=== PATIENT | male | born 1965 | race Caucasian/White ===

== ENCOUNTER → 2018-01-27 | Outpatient (CLI) | payer BC ==
--- NOTE | 2018-01-27 08:10 | US ---
EXAMINATION TYPE: US liver DATE OF EXAM: 01/27/2018 COMPARISON: NONE CLINICAL HISTORY: R74.8 elevated liver enzymes. EXAM MEASUREMENTS: Liver Length: 19.5 cm Gallbladder Wall: 0.2 cm CBD: 0.2 cm Right Kidney: 13.9 x 6.7 x 6.5 cm Pancreas: Mostly obscured by bowel gas, portions visualized wnl Liver: Increased attenuation, decreased visualization of vessels, very difficult to penetrate, enlar ged Gallbladder: wnl Evidence for sonographic Grewal's sign: no CBD: very limited visualization Right Kidney: lobular contour, enlarged IMPRESSION: 1. Hepatomegaly with hepatic steatosis.
== END | disposition home or self-care (01) ==
LOC: RADUSWWP 07:02
PROVIDERS: ATTEND Family Medicine
DX: R16.0 Hepatomegaly, not elsewhere classified (principal); K76.0 Fatty (change of) liver, not elsewhere classified
CPT/HCPCS: 76705

== ENCOUNTER → 2019-01-06 | Outpatient (CLI) | payer BC ==
--- NOTE | 2019-01-06 11:21 | US ---
EXAMINATION TYPE: US liver DATE OF EXAM: 01/06/2019 COMPARISON: 01/27/2018 CLINICAL HISTORY: R74.8 Abnormal Serum Enzyme Levels. EXAM MEASUREMENTS: Liver Length: 14.0 cm Gallbladder Wall: 0.2 cm CBD: 0.4 cm Right Kidney: 14.0 x 6.2 x 6.0 cm Pancreas: Obscured by bowel gas Liver: Increased attenuation, decreased visualization of vessels, very difficult to penetrate, enlar ged Gallbladder: wnl Evidence for sonographic Grewal's sign: no CBD: wnl Right Kidney: Multiple small echogenic foci within the right kidney represent small 1 to 2 mm renal c alculi IMPRESSION: 1. Redemonstration of hepatic steatosis overall appearing moderate in degree. 2. Multiple punctate nonobstructing right renal calculi. No hydronephrosis. 3. Obscuration of the pancreas by overlying bowel gas.
== END | disposition home or self-care (01) ==
LOC: RADUSWWP 09:34
PROVIDERS: ATTEND Family Medicine
DX: K76.0 Fatty (change of) liver, not elsewhere classified (principal); N20.0 Calculus of kidney
CPT/HCPCS: 76705

== ENCOUNTER 2019-04-01 07:32 | Day surgery (SDC) | payer BC ==
[2019-03-30 10:21] VITALS: BMI 35.6
[~2019-04-01 07:32] MED LIST: LACTATED RINGERS 1,000 ML IV SCH; LIDOCAINE 1% 20 ML VIAL (10MG/ML) FOR IV START INTRADERMA PRN
--- NOTE | 2019-04-01 07:38 | P.GSHP ---
History of Present Illness H&P Date: 04/01/19 CHIEF COMPLAINT: Colon screen HISTORY OF PRESENT ILLNESS: The patient is a 53-year-old male who presents for colon screen. Lower endoscopy was offered for further evaluation and management. PAST MEDICAL HISTORY: Please see list. PAST SURGICAL HISTORY: Please see list. MEDICATIONS: Please see list. ALLERGIES: Please see list. SOCIAL HISTORY: No illicit drug use FAMILY HISTORY: No reports of Crohn disease or ulcerative colitis. REVIEW OF ORGAN SYSTEMS: CONSTITUTIONAL: No reports of fevers or chills. PHYSICAL EXAM: VITAL SIGNS: Stable GENERAL: Well-developed pleasant in no acute distress. HEENT: No scleral icterus. Extraocular movements grossly intact. Moist buccal mucosa. NECK: Supple without lymphadenopathy. CHEST: Unlabored respirations. Equal bilateral excursions. CARDIOVASCULAR: Regular rate and rhythm. Distal 2+ pulses. ABDOMEN: Soft, nontender, nondistended. MUSCULOSKELETAL: No clubbing, cyanosis, or edema. ASSESSMENT: 1. Colon screen. PLAN: 1. Recommend proceeding with a lower endoscopy Past Medical History Past Medical History: Diabetes Mellitus, Hypertension Additional Past Medical History / Comment(s): "FATTY LIVER" , GASTROPARESIS- PAST HISTORY History of Any Multi-Drug Resistant Organisms: None Reported Past Surgical History: No Surgical Hx Reported Additional Past Surgical History / Comment(s): COLONOSCOPY , EGD Past Anesthesia/Blood Transfusion Reactions: No Reported Reaction Smoking Status: Former smoker - Past Family History Mother Family Medical History: Diabetes Mellitus Father Family Medical History: COPD, Hypertension Additional Family Medical History / Comment(s): father Brother(s) Family Medical History: Cancer Medications and Allergies Home Medications Medication Instructions Recorded Confirmed Type Metoprolol Tartrate [Lopressor] 100 mg PO DAILY 05/06/14 03/30/19 History Hydrochlorothiazide 25 mg PO DAILY 03/30/19 03/30/19 History Losartan [Cozaar] 50 mg PO DAILY 03/30/19 03/30/19 History Sertraline [Zoloft] 100 mg PO DAILY 03/30/19 03/30/19 History sitaGLIPtin PHOS/metFORMIN HCL 1 each PO DAILY 03/30/19 03/30/19 History [Janumet 50-500 mg Tablet] Allergies Allergy/AdvReac Type Severity Reaction Status Date / Time No Known Allergies Allergy Verified 03/30/19 10:00
[2019-04-01 07:54] VITALS: TEMP 98.3
[2019-04-01 08:08] LABS: Glucose,Whole Blood 218 mg/dL (75-99)
[2019-04-01] MEDS ORDERED: PROPOFOL 10 MG/ML 20 ML VIAL IV ONE (08:34)
[2019-04-01] MEDS ORDERED: LIDOCAINE 1% INJ 10MG/ML (20 ML MDV) ONE (08:34)
--- NOTE | 2019-04-01 09:04 | P.PCN ---
Date of Procedure: 04/01/19 Description of Procedure: PREOPERATIVE DIAGNOSIS: Family history of colon cancer Colonoscopy screening, first POSTOPERATIVE DIAGNOSIS: Family history of colon cancer Colonoscopy screening, first Multiple tubular adenomas throughout the colon. Internal hemorrhoids, grade 2 OPERATION: Colonoscopy to the ileocecal valve and appendiceal orifice. Colonoscopy with multiple cold forceps biopsies. SURGEON: Mitzi Catalan MD. ANESTHESIA: MAC. INDICATIONS: The patient is a 53-year-old male who presents for his first colonoscopy screening. He has multiple family members with colon cancer. Benefits and risks were described and informed consent was obtained. DESCRIPTION OF PROCEDURE: The patient had undergone Gatorade, MiraLAX and Dulcolax prep. He had been brought into the operating room and laid in the left lateral decubitus position. After adequate intravenous sedation, the rectum was examined with 2% lidocaine jelly. No external hemorrhoids were encountered. The rectal tone was within normal limits. No lesions were palpated in the rectal vault. An Olympus colonoscope was advanced until the ileocecal valve and appendiceal orifice were clearly viewed. Abdominal wall pressure was needed to advance the colon via a tortuous sigmoid colon. The prep was poor with moderate stool prohibiting full view of the mucosa. No scattered diverticulosis was encountered. Multiple colonic polyps were found and cold forcep biopsy. No evidence of focal colitis was found. Retroflexion of the scope demonstrated grade 2 internal hemorrhoids without active bleeding or inflammation. The colon was desufflated. The patient had tolerated the procedure well. Withdrawal time was over 6 minutes. FINDINGS: Aronchick preparation quality scale 4 (1-5) Internal hemorrhoids, grade 2 No external hemorrhoids. No arteriovenous malformations. No scattered diverticulosis Poor prep with moderate semisolid stool obscuring the descending colon Removal of 8 polyps: - Cold forceps biopsy at 20 cm from the anal verge 3, 4 mm tubulovillous adenoma polyp, sigmoid colon - Cold forceps biopsy at 15 cm from the anal verge 4, 3 mm flat villous adenoma polyp, sigmoid colon - Cold forceps biopsy at mid transverse colon, 5 mm polyp. No focal colitis. RECOMMENDATIONS: Given severity of tubular adenomas, recommend repeat colonoscopy 2 years, 2020. Recommend two day liquid diet for appropriate prep Plan - Discharge Summary Discharge Rx Participant: No New Discharge Prescriptions: No Action Metoprolol Tartrate [Lopressor] 100 mg PO DAILY sitaGLIPtin PHOS/metFORMIN HCL [Janumet 50-500 mg Tablet] 1 each PO DAILY Sertraline [Zoloft] 100 mg PO DAILY Losartan [Cozaar] 50 mg PO DAILY Hydrochlorothiazide 25 mg PO DAILY Discharge Medication List Metoprolol Tartrate [Lopressor] 100 mg PO DAILY 05/06/14 [History] Hydrochlorothiazide 25 mg PO DAILY 03/30/19 [History] Losartan [Cozaar] 50 mg PO DAILY 03/30/19 [History] Sertraline [Zoloft] 100 mg PO DAILY 03/30/19 [History] sitaGLIPtin PHOS/metFORMIN HCL [Janumet 50-500 mg Tablet] 1 each PO DAILY 03/30/19 [History] Follow up Appointment(s)/Referral(s): Mitzi Catalan MD [STAFF PHYSICIAN] - 04/07/19 Patient Instructions/Handouts: Colorectal Polyps (GEN) Activity/Diet/Wound Care/Special Instructions: Repeat colonoscopy 2 years, 2020 Discharge Disposition: HOME SELF-CARE
[2019-04-01 09:24] VITALS: RESP 18
[2019-04-01 10:03] VITALS: BP 126/70; PULSE 68
== END 2019-04-01 10:00 | disposition home or self-care (01) ==
LOC: ORWHC2ENDO 07:32
PROVIDERS: ATTEND Surgery Plastic and Reconstructive Surgery
DX: Z12.11 Encounter for screening for malignant neoplasm of colon (principal); Z80.0 Family history of malignant neoplasm of digestive organs; D12.3 Benign neoplasm of transverse colon; K63.5 Polyp of colon; Q43.9 Congenital malformation of intestine, unspecified; K64.1 Second degree hemorrhoids; I10 Essential (primary) hypertension; E11.43 Type 2 diabetes mellitus with diabetic autonomic (poly)neuropathy; K31.84 Gastroparesis; K76.0 Fatty (change of) liver, not elsewhere classified; F32.9 Major depressive disorder, single episode, unspecified; Z87.891 Personal history of nicotine dependence; Z79.84 Long term (current) use of oral hypoglycemic drugs; Z79.899 Other long term (current) drug therapy; Z83.3 Family history of diabetes mellitus; Z82.49 Family history of ischemic heart disease and other diseases of the circulatory system; Z82.5 Family history of asthma and other chronic lower respiratory diseases
CPT/HCPCS: 45380; 88305; J2001; J2704

== ENCOUNTER → 2021-02-13 | Outpatient (CLI) | payer BC ==
--- NOTE | 2021-02-13 07:45 | US ---
EXAMINATION TYPE: US liver DATE OF EXAM: 02/13/2021 COMPARISON: US CLINICAL HISTORY: R94.5 Abnormal results of liver function studies. Abnormal LFT's EXAM MEASUREMENTS: Liver Length: 20.2 cm Gallbladder Wall: 0.2 cm CBD: 0.4 cm Right Kidney: 14.3 x 7.5 x 7.2 cm Pancreas: Difficult to visualize due to overlying bowel gas and enlarged liver Liver: Enlarged, heterogeneous, difficult to penetrate Gallbladder: wnl Evidence for sonographic Grewal's sign: No CBD: wnl Right Kidney: Upper pole difficult to visualize, possible 5mm calculi scattered throughout, no evide nce of hydro IMPRESSION: 1. Hepatomegaly with underlying hepatic steatosis suggested. 2. Nonobstructing right renal calculi.
== END | disposition home or self-care (01) ==
LOC: RADUSWWP 06:59
PROVIDERS: ATTEND Family Medicine
DX: R16.0 Hepatomegaly, not elsewhere classified (principal); N20.0 Calculus of kidney
CPT/HCPCS: 76705

== ENCOUNTER 2024-04-08 08:00 | Day surgery (SDC) | payer BC ==
[2024-04-08] MEDS ORDERED: LIDOCAINE 1% (10MG/ML) FOR IV START INTRADERMA PRN (08:16)
[2024-04-08 08:27] VITALS: TEMP 98.9
[2024-04-08] MEDS: LACTATED RINGERS 1,000 ML IV SCH (08:37)
[2024-04-08] MEDS: IV FLUID CONTINUATION 1,000 ML IV ONE (08:37)
--- NOTE | 2024-04-08 08:38 | P.GSHP ---
History of Present Illness H&P Date: 04/08/24 CHIEF COMPLAINT: Gastroparesis and history of colon polyps HISTORY OF PRESENT ILLNESS: The patient is a 69-year-old male who presents with gastroesophageal reflux disease and need for colon screen. Upper and lower endoscopy were offered for further evaluation and management. PAST MEDICAL HISTORY: Please see list. PAST SURGICAL HISTORY: Please see list. MEDICATIONS: Please see list. ALLERGIES: Please see list. SOCIAL HISTORY: No illicit drug use FAMILY HISTORY: No reports of Crohn disease or ulcerative colitis. REVIEW OF ORGAN SYSTEMS: CONSTITUTIONAL: No reports of fevers or chills. GI: Denies any blood in stools or constipation. Has gastroparesis PHYSICAL EXAM: VITAL SIGNS: Stable GENERAL: Well-developed pleasant in no acute distress. HEENT: No scleral icterus. Extraocular movements grossly intact. Moist buccal mucosa. NECK: Supple without lymphadenopathy. CHEST: Unlabored respirations. Equal bilateral excursions. CARDIOVASCULAR: Regular rate and rhythm. Distal 2+ pulses. ABDOMEN: Soft, nondistended. MUSCULOSKELETAL: No clubbing, cyanosis, or edema. ASSESSMENT: 1. Gastroesophageal reflux disease with gastroparesis 2. Colon screen for history of colon polyp. PLAN: 1. Recommend proceeding with an upper and lower endoscopy Past Medical History Past Medical History: Diabetes Mellitus, GERD/Reflux, Hyperlipidemia, Hypertension Additional Past Medical History / Comment(s): "FATTY LIVER" , GASTROPARESIS- PAST HISTORY History of Any Multi-Drug Resistant Organisms: None Reported Past Surgical History: No Surgical Hx Reported Additional Past Surgical History / Comment(s): COLONOSCOPY , EGD Past Anesthesia/Blood Transfusion Reactions: No Reported Reaction Smoking Status: Former smoker - Past Family History Mother Family Medical History: Diabetes Mellitus Father Family Medical History: COPD, Hypertension Additional Family Medical History / Comment(s): father Brother(s) Family Medical History: Cancer Medications and Allergies Home Medications Medication Instructions Recorded Confirmed Type Metoprolol Tartrate [Lopressor] 50 mg PO DAILY 05/06/14 04/03/24 History Losartan [Cozaar] 50 mg PO DAILY 03/30/19 04/03/24 History hydroCHLOROthiazide 25 mg PO DAILY 03/30/19 04/03/24 History Escitalopram [Lexapro] 10 mg PO DAILY 04/03/24 04/03/24 History Insulin Glargine,Hum.rec.anlog 47 units SQ HS 04/03/24 04/08/24 History [Lantus Solostar Pen] Insulin Lispro 8 units SQ TID 04/03/24 04/08/24 History Omeprazole 1 tab PO DAILY 04/03/24 04/08/24 History Pregabalin [Lyrica] 100 mg PO BID 04/03/24 04/08/24 History amLODIPine [Norvasc] 5 mg PO DAILY 04/03/24 04/03/24 History metFORMIN HCL [Metformin HCl] 1,000 mg PO BID 04/03/24 04/08/24 History Allergies Allergy/AdvReac Type Severity Reaction Status Date / Time No Known Allergies Allergy Verified 04/03/24 17:48 Surgical - Exam Vital Signs Temp Pulse Resp BP Pulse Ox 98.9 F 81 18 146/83 94 L 04/08/24 08:23 04/08/24 08:23 04/08/24 08:23 04/08/24 08:23 04/08/24 08:23
[2024-04-08 08:41] LABS: Glucose,Whole Blood 203 mg/dL (70-110)
[2024-04-08] MEDS ORDERED: LIDOCAINE 1% INJ 10MG/ML (20 ML MDV) ONE (09:27)
[2024-04-08] MEDS ORDERED: fentaNYL (PF) 50 MCG/ML 2 ML AMP ONE (09:27)
[2024-04-08] MEDS ORDERED: PROPOFOL 10 MG/ML 20 ML VIAL IV ONE (09:27)
--- NOTE | 2024-04-08 09:44 | P.PCN ---
Date of Procedure: 04/08/24 Description of Procedure: PREOPERATIVE DIAGNOSIS: Gastroparesis Gastroesophageal reflux disease. Morbid obesity. POSTOPERATIVE DIAGNOSIS: Gastroesophageal reflux disease. Morbid obesity. Gastritis. Gastric polyp OPERATION: Esophagogastroduodenoscopy with biopsies along esophagus, antrum and duodenum SURGEON: Mitzi Catalan MD ANESTHESIA: MAC. INDICATIONS: The patient is a 58-year-old male who presents with gastroparesis and reflux disease. Benefits and risks of the procedure were described. Informed consent was obtained. DESCRIPTION: The patient was brought into the endoscopy suite and laid in the left lateral decubitus position. An Olympus gastroscope was passed along the posterior oropha rynx down to the distal esophagus where the squamocolumnar junction was encountered at 40 cm from the incisors. The stomach was entered and no bile reflux was found. Additional findings are listed below. Biopsies with cold forceps were obtained of the antrum. The first through third portion of the duodenum was examined. Retroflexion of the scope confirmed Hill grade 2 lower esophageal valve. The squamocolumnar junction demonstrated LA grade B erosive esophagitis. The stomach was desufflated. The patient tolerated the procedure well. FINDINGS: Squamocolumnar junction 40 cm from the incisors. Diaphragmatic hiatus at 40 cm. Hill grade 2 lower esophageal valve. LA grade A erosive esophagitis. Biopsies obtained Gastric polyp along gastric antrum biopsied Biopsies obtained of the duodenum. Chronic gastritis with biopsies obtained. RECOMMENDATIONS: Upper endoscopy as needed.
--- NOTE | 2024-04-08 10:04 | P.PCN ---
Date of Procedure: 04/08/24 Description of Procedure: PREOPERATIVE DIAGNOSIS: Personal history of colon polyps Colonoscopy screening POSTOPERATIVE DIAGNOSIS: Tubular adenoma, rectal OPERATION: Colonoscopy to the ileocecal valve and appendiceal orifice, cecum Colonoscopy with hot snare polypectomy SURGEON: Mitzi Catalan MD. ANESTHESIA: MAC. INDICATIONS: The patient is an 58-year-old male who presents personal history of colon polyps. Last colonoscopy 5 years. Benefits and risks were described and informed consent was obtained. DESCRIPTION OF PROCEDURE: The patient had undergone SuFLAVE prep. The patient had been brought into the operating room and laid in the left lateral decubitus position. After adequate intravenous sedation, the rectum was examined with 2% lidocaine jelly. The prostate was unremarkable. External hemorrhoids were encountered. The rectal tone was within normal limits. No lesions were palpated in the rectal vault. An Olympus colonoscope was advanced until the cecum, ileocecal valve and appendiceal orifice were clearly viewed. The prep was good. No sigmoid diverticulosis was encountered. Colonic polyps were found and removed. No evidence of focal colitis was found. Retroflexion of the scope demonstrated grade 2 internal hemorrhoids without active bleeding or inflammation. The colon was desufflated. The patient had tolerated the procedure well. Withdrawal time was over 6 minutes. FINDINGS: Aronchick preparation quality scale 2 (1-5) Internal hemorrhoids, grade 1 External hemorrhoids, grade 1. No arteriovenous malformations. No sigmoid diverticulosis Highly redundant sigmoid colon requiring abdominal wall pressure Removal of 1 polyps: - Snare polypectomy 10 cm from the anal verge, 5 mm tubulovillous adenoma No focal colitis. RECOMMENDATIONS: Recommend repeat colonoscopy 3 years, 2026 Plan - Discharge Summary Discharge Rx Participant: No New Discharge Prescriptions: Continue Metoprolol Tartrate [Lopressor] 50 mg PO DAILY Losartan [Cozaar] 50 mg PO DAILY hydroCHLOROthiazide 25 mg PO DAILY Omeprazole 1 tab PO DAILY Insulin Lispro 8 units SQ TID Insulin Glargine,Hum.rec.anlog [Lantus Solostar Pen] 47 units SQ HS amLODIPine [Norvasc] 5 mg PO DAILY Escitalopram [Lexapro] 10 mg PO DAILY metFORMIN HCL 1,000 mg PO BID Pregabalin [Lyrica] 100 mg PO BID Discharge Medication List Metoprolol Tartrate [Lopressor] 50 mg PO DAILY 05/06/14 [History] Losartan [Cozaar] 50 mg PO DAILY 03/30/19 [History] hydroCHLOROthiazide 25 mg PO DAILY 03/30/19 [History] Escitalopram [Lexapro] 10 mg PO DAILY 04/03/24 [History] Insulin Glargine,Hum.rec.anlog [Lantus Solostar Pen] 47 units SQ HS 04/03/24 [History] Insulin Lispro 8 units SQ TID 04/03/24 [History] Omeprazole 1 tab PO DAILY 04/03/24 [History] Pregabalin [Lyrica] 100 mg PO BID 04/03/24 [History] amLODIPine [Norvasc] 5 mg PO DAILY 04/03/24 [History] metFORMIN HCL 1,000 mg PO BID 04/03/24 [History] Follow up Appointment(s)/Referral(s): Mitzi Catalan MD [STAFF PHYSICIAN] - 05/12/24 4:00 pm Patient Instructions/Handouts: Colorectal Polyps (GEN), Gastritis (DC) Activity/Diet/Wound Care/Special Instructions: Repeat colonoscopy 3 years, 2026 Discharge Disposition: HOME SELF-CARE
[2024-04-08 10:07] VITALS: RESP 16
[2024-04-08 10:29] VITALS: BP 142/88; PULSE 77
== END 2024-04-08 10:32 | disposition home or self-care (01) ==
LOC: ORWHC2ENDO 08:00
PROVIDERS: ATTEND Surgery Plastic and Reconstructive Surgery
DX: Z12.11 Encounter for screening for malignant neoplasm of colon (principal); K21.00 Gastro-esophageal reflux disease with esophagitis, without bleeding; D12.8 Benign neoplasm of rectum; E11.43 Type 2 diabetes mellitus with diabetic autonomic (poly)neuropathy; E66.01 Morbid (severe) obesity due to excess calories; E78.5 Hyperlipidemia, unspecified; I10 Essential (primary) hypertension; K29.50 Unspecified chronic gastritis without bleeding; K31.7 Polyp of stomach and duodenum; K31.84 Gastroparesis; K76.0 Fatty (change of) liver, not elsewhere classified; Z79.4 Long term (current) use of insulin; Z79.84 Long term (current) use of oral hypoglycemic drugs; Z79.899 Other long term (current) drug therapy; Z87.891 Personal history of nicotine dependence; Z86.010 Personal history of colon polyps
CPT/HCPCS: 88305; 45385; 43239; J2001; J3010; J2704